=== PATIENT | female | born 1945 | race Caucasian/White ===

== ENCOUNTER 2016-05-10 14:33 | Emergency (ER) | payer MEDICARE, OTHER ==
[~2016-05-10] VITALS: Ht 170.2 cm; Wt 72.6 kg
[~2016-05-10 14:33] MED LIST: AUGMENTIN 875-1 EAC1 ORAL; COZAAR50 MG ORAL; KEFLEX500 MG ORAL; RESTORIL15 MG ORAL
[2016-05-10] MEDS ORDERED: LORazepam 0.5mg tab ORAL ONE (14:45)
--- NOTE | 2016-05-10 15:46 | Diagnostic Imaging Report ---
Indications: And pain, status post fall Technique: Spiral acquisitions obtained through the brain. Angled axial and coronal 5 x 5 mm slices were reconstructed. Total dose length product 1435 mGycm. CTDI vol(s) 70 mGy Comparison: None Findings: The calvarium is intact. There is a subcutaneous lesion in the left parietal scalp near the vertex which measures 1 cm diameter. There is an old lacunar infarct in the right anterior basal ganglia. There is extensive periventricular deep white matter chronic ischemic change. There is a small old lacunar infarct within the left calvo radiata and one within the right frontal deep white matter. There is marked age-related enlargement of ventricles and extra axial CSF spaces. Visualized orbits are unremarkable. There is maxillary and ethmoid and sphenoid sinus disease. No evidence of acute intracranial hemorrhage or edema. No mass effect or midline shift. 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
[2016-05-10] MEDS ORDERED: TYLENOL EXTRA500 MG ORAL (16:04)
[2016-05-10 16:37] VITALS: BP 113/70
--- NOTE | 2016-05-13 15:12 | Emergency Room Report ---
History of Present Illness General Chief Complaint: Multiple Trauma/Fall Source: EMS Present Illness HPI The pt is a 70 yo F presenting for LINDQUIST after falling onto her head while walking outside today. The pt states this has not happened in the past. The patient states she tripped on uneven pavement and struck the back of her head. Pain is described as an 8/10 dull ache and does not radiate. Pt unsure if she lost consciousness. The pt denies any other symptoms including N, V, F, chills, fatigue, dizziness, CP, SOB Allergies: Coded Allergies: CODEINE (Unverified Allergy, Intermediate, 05/12/15) Patient History Past Medical History: see triage record Pertinent Family History: none Reviewed Nursing Documentation: PMH: Agreed, PSxH: Agreed Nursing Documentation-PMH Past Medical History: No History, Except For Hx Hypertension: Yes Hx Diabetes: Yes Hx Gastrointestinal Problems: No - Appendectomy in 2013 Hx Neurological Problems: No - Diagnosed Compressive Lumbar Fracture(2014), advised to have surgery Review of Systems All Other Systems: negative except mentioned in HPI Physical Exam Vital Signs Date Time Temp Pulse Resp B/P Pulse Ox O2 Delivery O2 Flow Rate FiO2 05/10/16 14:28 82 16 136/82 99 Room Air 05/10/16 16:37 97.0 Sp02 EP Interpretation: reviewed, normal General Appearance: no apparent distress, alert, GCS 15, non-toxic Head: normocephalic, atraumatic, other - TTP over occipital region Eyes: bilateral eye PERRL, bilateral eye normal inspection ENT: hearing grossly normal, normal pharynx, no angioedema, normal voice Neck: full range of motion, no bony tend, supple/symm/no masses Respiratory: chest non-tender, lungs clear, normal breath sounds, speaking full sentences Cardiovascular #1: regular rate, rhythm, no edema Cardiovascular #2: 2+ carotid (R), 2+ carotid (L), 2+ radial (R), 2+ radial (L) , 2+ dorsalis pedis (R), 2+ dorsalis pedis (L) Musculoskeletal: back normal, gait/station normal, normal range of motion, non- tender Neurologic: alert, oriented x3, responsive, motor strength/tone normal, sensory intact, speech normal Psychiatric: judgement/insight normal, memory normal, mood/affect normal, no suicidal/homicidal ideation Reflexes: 3+ bicep (R), 3+ bicep (L), 3+ tricep (R), 3+ tricep (L), 3+ knee (R) , 3+ knee (L) Skin: normal color, no rash, warm/dry, well hydrated Lymphatic: no adenopathy Medical Decision Making PA Attestation Dr. Qureshi is my supervising physician. Patient management was discussed with my supervising physician Diagnostic Impression: Primary Impression: Headache Additional Impression: Anxiety attack ER Course The pt is a 70 yo F presenting for LINDQUIST after falling onto her head while walking outside today. DDx: fracture, ICH, contusion, migraine PE: Vitals WNL. Mildly anxious Head is NC/AT. No ecchymosis. No edema. No depressions. TTP over occipital region. RRR. Lungs CTA bilat. CT scan of head unremarkable for acute process Pt given low dose of ativan for anxiety and is feeling better. Pt declines motrin and tylenol for pain. The pt will be ID'ed home with ER precautions. Pt told to see psychiatrist and PMD AYDEN. CT/MRI/US Diagnostic Results CT/MRI/US Diagnostic Results : Imaging Test Ordered: CT head Impression Unremarkable per radiologist. Last Vital Signs Date Time Temp Pulse Resp B/P Pulse Ox O2 Delivery O2 Flow Rate FiO2 05/10/16 16:37 97.0 85 14 113/70 97 Room Air Status: improved Disposition: HOME, SELF-CARE Condition: Improved Scripts Acetaminophen* (TYLENOL EXTRA STRENGTH*) 500 Mg Tablet 500 MG ORAL Q8H Y for Prn Headache/Temp > 101, #30 TAB 0 Refills Prov: MAURICE HUNTER 05/10/16 Referrals: NOT CHOSEN IPA/,REFERRING (PCP) Patient Instructions: General Headache Without Cause, Panic Attacks Additional Instructions: I discussed my findings with the patient. All questions and concerns have been answered. Treatment and medication compliance have been addressed. I advised the patient that they need to follow up with PMD in 3-5 days. Return to ED if symptoms worsen, new symptoms arise, or if needed for any reason. Patient verbalized understanding of discharge instructions. MAURICE HUNTER May 13, 2016 15:12
== END 2016-05-10 16:45 | disposition home or self-care (01) ==
LOC: EDBD 14:33 → EMR 15:03
DX: R51 Headache (principal); F41.9 Anxiety disorder, unspecified; S09.8XXA Other specified injuries of head, initial encounter; W19.XXXA Unspecified fall, initial encounter; Y93.01 Activity, walking, marching and hiking; Y92.89 Other specified places as the place of occurrence of the external cause; I10 Essential (primary) hypertension; E11.9 Type 2 diabetes mellitus without complications; Z88.6 Allergy status to analgesic agent
CPT/HCPCS: 70450; 99284